=== PATIENT | male | born 1955 | race Caucasian/White ===

== ENCOUNTER 2018-06-03 15:11 | Inpatient (IN) | payer OTHER ==
[~2018-06-03] VITALS: Ht 180.3 cm; Wt 115.4 kg
[2018-06-03 15:15] VITALS: BP 177/99
[2018-06-03] MEDS ORDERED: ALEVE220 MG PO (15:30)
[2018-06-03] MEDS ORDERED: B12INJ IM (15:30)
[2018-06-03] MEDS ORDERED: GINKGO BILOBA30 MG PO (15:31)
[2018-06-03 15:33] LABS: ABSOLUTE EOSINOPHILS 0.1 thou/uL (0.0-0.7); ABSOLUTE LYMPHOCYTES 1.2 thou/uL (0.8-5.3); ABSOLUTE MONOCYTES 0.6 thou/uL (0.0-1.2); ABSOLUTE NEUTROPHILS 3.6 thou/uL (1.6-8.1); BASOPHILS 0.6 %; EOSINOPHILS 2.4 %; HEMATOCRIT 46.3 % (42.0-52.0); HEMOGLOBIN 15.7 gm/dL (14.0-18.0); LYMPHOCYTES 22.1 %; MCHC 33.9 g/dL (28.0-37.0); MCV 88.5 fL (80.0-100.0); MONOCYTES 10.4 %; MPV 8.4 fl. (7.2-11.1); NUCLEATED RBCS 0 /100WBC; PLATELET COUNT* 239 thou/uL (150-400); POLYS 64.5 %; RBC 5.23 mil/uL (4.50-6.00); RDW-CV 13.9 % (10.5-14.5); WBC 5.6 thou/uL (4.0-11.0)
[2018-06-03 15:40] LABS: CALCIUM 8.5 mg/dL (8.5-10.1); CREATININE 1.2 mg/dL (0.6-1.3)
[2018-06-03 15:41] LABS: APTT 28.7 Seconds (25.0-31.3)
[2018-06-03 16:01] LABS: ALBUMIN 4.1 g/dL (3.4-5.0); CK-MB MASS 3.8 ng/mL (<0.5-3.6); MAGNESIUM 2.1 mg/dL (1.8-2.4); TOTAL BILIRUBIN 0.6 mg/dL (<0.1-1.0); TOTAL PROTEIN 7.6 g/dL (6.4-8.2); TROPONIN-I LEVEL 0.2 ng/mL (<0.06)
[2018-06-03 16:56] VITALS: BP 182/100
[2018-06-03 20:00] VITALS: BP 128/78
[2018-06-04] VITALS (15 sets, daily range): BP systolic 115–144; BP diastolic 57–86
--- NOTE | 2018-06-04 10:27 | EKG ---
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
--- NOTE | 2018-06-04 10:27 | EKG ---
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
--- NOTE | 2018-06-04 12:09 | CARD ---
[address] [address] CARDIAC CATH REPORT Name: MARIANANIRAV Terence Room: [address] IN [facility]#: [id number] Admission: 06/03/18 Attend Phys: Gennaro Hunt, Discharge: Date of : 53 Report #: [id number] THIS REPORT FOR: //name// APPROVED REPORT Study performed: 06/04/2018 08:44:07 Patient Details Patient Status: In-Patient Room #: 221 The patient is a 62 year-old male Event Personnel Bassem Knapp Nutrition Worker, Christy Raya RN Tire Wrapper, Serene Lewis RTR Monitor, Mukund Loazia (R) Debbie Barrera Angela Monitor Procedures Performed Art Access - R radial artery Left Heart Cath w/or w/o Coronaries [id number] [facility] Hemostasis with Hemoband Indication Non-STEMI , Chest pain Risk Factors Family History, Hypercholesterolemia Admission/Lab Medications/Medications given during procedure Aspirin Procedure Narrative The patient was brought electively to the Cardiac Catheterization Laboratory and was prepped and draped in a sterile manner. The right wrist was infiltrated with 2% Lidocaine subcutaneous anesthesia. A Slender Glidesheath sheath was inserted into the right radial artery. Coronary angiography was performed using coronary diagnostic catheters. The right coronary system was accessed and visualized with a Diagnostic 6FR JR4 catheter. The left coronary system was accessed and visualized with a Diagnostic 6FR JL 3.5 catheter. The left ventricle was accessed and visualized with a Diagnostic 6FR ANGLED PIGTAIL catheter. Left ventricular/Aortic Valve gradient assessed via catheter pullback. Left ventriculogram was performed in ARELLANO projection. Closure device was deployed with a 6 Fr 27CM R-BAND 10CC. The patient tolerated the procedure well and there were no complications associated with the procedure. [place] [address] CARDIAC CATH REPORT Name: NIRAV PEÑA Room: [address] IN [facility]#: [id number] Admission: 06/03/18 Attend Phys: Gennaro Hunt, Discharge: Date of : 53 Report #: [id number] hematoma. Intraoperative Conscious Sedation Sedation start time: 9:24 Case end Time: 9:55 Fentanyl 25 mcg Versed 2 mg Fluoro Time: 7.3 minutes Dose: DAP 17279 cGycm2 1344 mGy Contrast Type and Amount: Visipaque 140 ml Coronary Angiography The patient's coronary anatomy is right dominant. Diagnostic Cath Left Main 30% distal stenosis LAD 70% proximal, 50% mid, and 60% distal stenosis Circumflex 60% ostial, and 70% after marginal branch OM3 70% proximal stenosis Right Coronary chronic occlusion and fills by collaterals from the left coronary Left Ventriculography The left ventricle is normal in size with normal contractility. The left ventricular ejection fraction is estimated to be 55-60%. Left ventricular wall motion abnormalities are not present. There is no mitral insufficiency. Hemodynamics The aortic pressure is 105/67 mmHg with a mean of 79 mmHg. The left ventricular pressure is 102/8 mmHg with a mean of mmHg. The left ventricular end diastolic pressure is 8 mmHg. There was no gradient across the aortic valve upon pullback. Pullback from the left ventricle to the aorta revealed no gradient across the aortic valve. Conclusion 1. 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 [place] [address] CARDIAC CATH REPORT Name: NIRAV PEÑA Room: [address] IN [facility].#: [id number] Admission: 06/03/18 Attend Phys: Gennaro Hunt, Discharge: Date of : 53 Report #: [id number] Recommendations CABG <ELECTRONICALLY SIGNED> By: Bassem Knapp MD, FACC 06/04/18 1208 07 1208Bassem Knapp MD, FACC /INF
[2018-06-05] VITALS: BP 141/86
[2018-06-05 04:00] VITALS: BP 143/90
[2018-06-05 05:34] LABS: CHOLESTEROL 198 mg/dL (<200); HDL CHOLESTEROL 35 mg/dL (>40); LDL CHOLESTEROL 132 mg/dL (<100); SERUM ASSESSMENT CLEAR; TC:HDL 5.7 Ratio (Not establshd); TRIGLYCERIDE 155 mg/dL (<150); VLDL 31 mg/dL (<40)
[2018-06-05 05:38] LABS: TROPONIN-I LEVEL 0.92 ng/mL (<0.06)
[2018-06-05 08:00] VITALS: BP 136/83
[2018-06-05] MEDS ORDERED: BAYER CHEWABLE81 MG PO (12:15)
[2018-06-05] MEDS ORDERED: LIPITOR 20 MG T20 M1 PO (12:16)
[2018-06-05] MEDS ORDERED: LOPRESSOR25 PO (12:16)
[2018-06-05] MEDS ORDERED: ATORVASTATIN CA40 MG PO (12:16)
[2018-06-05] MEDS ORDERED: ENOXAPARIN40 MG/0.1 SUBQ (12:17)
[2018-06-05 12:18] VITALS: BP 136/83
[2018-06-05] MEDS ORDERED: APAP650 PO (12:18)
--- NOTE | 2018-06-05 12:23 | 2DMMODE ---
[place] [address] 2 D/M-MODE ECHOCARDIOGRAM Name: NIRAV PEÑA Room: [address] IN [facility]#: [id number] Admission: 06/03/18 Attend Phys: Gennaro Perdomo Discharge: Date of : 53 Date of Service: 06/05/18 1223 Report #: [id number] THIS REPORT FOR: //name// APPROVED REPORT Study performed: 06/05/2018 09:44:40 EXAM: Comprehensive 2D, Doppler, and color-flow Echocardiogram Patient Location: In-Patient Room #: 221 Status: routine BSA: 2.39 HR: 59 bpm BP: 136/83 mmHg Rhythm: NSR Other Information Technically limited study due to body habitus, poor endocardial definition. Indications CAD Chest Pain Echo Enhancing Agent Indication: Endocardial border delineation Agent(s) / Amount(s) Used: Optison 3 cc 2D Dimensions LVEF(%): 52.68 (>50%) IVSd: 11.63 (7-11mm) LVOT Diam: 23.12 (18-24mm) LVDd: 40.31 mm PWd: 9.02 (7-11mm) Ascending Ao: 33.01 (22-36mm) LVDs: 29.55 (25-40mm) Aortic Root: 33.88 mm Blair's LVEF: 52.68 % Volumes Left Atrial Volume (Systole) LA ESV Index: 24.20 mL/m2 Aortic Valve AoV Peak Sukhjinder.: 1.60 m/s AO Peak Gr.: 10.18 mmHg LVOT Max P.28 mmHg AO Mean Gr.: 5.20 mmHg LVOT Mean P.62 [place] [address] 2 D/M-MODE ECHOCARDIOGRAM Name: NIRAV PEÑA Room: [address] IN ..#: [id number] Admission: 06/03/18 Attend Phys: Gennaro Perdomo Discharge: Date of : 53 Date of Service: 06/05/18 1223 Report #: [id number] LVOT Max V: 1.15 m/s AO V2 VTI: 31.68 cm LVOT Mean V: 0.74 m/s CRESENCIO (VTI): 3.10 cm2 LVOT V1 VTI: 23.43 cm Mitral Valve E/A Ratio: 0.71 MV Decel. Time: 225.84 ms MV E Max Sukhjinder.: 0.56 m/s MV PHT: 65.49 ms MVA (PHT): 3.36 cm2 TDI E/Lateral E': 5.09 E/Medial E': 7.00 Medial E' Suhkjinder.: 0.08 m/s Lateral E' Sukhjinder.: 0.11 m/s Pulmonary Valve PV Peak Sukhjinder.: 1.09 m/s PV Peak Gr.: 4.76 mmHg Left Ventricle The left ventricle is normal size. There is normal LV segmental wall motion. There is normal left ventricular wall thickness. Left ventricular systolic function is normal. The left ventricular ejection fraction is within the normal range. LVEF is 55-60%. Grade I - abnormal relaxation pattern. Right Ventricle The right ventricle is normal size. The right ventricular systolic function is normal. Atria The left atrium size is normal. The right atrium size is normal. Aortic Valve Mild aortic valve sclerosis. No aortic regurgitation is present. There is no aortic valvular stenosis. Mitral Valve The mitral valve is normal in structure. There is no mitral valve regurgitation noted. No evidence of mitral valve stenosis. Tricuspid Valve The tricuspid valve is normal in structure. Unable to assess PA pressure. Trace [place] [address] 2 D/M-MODE ECHOCARDIOGRAM Name: NIRAV PEÑA Room: [address] IN [facility]#: [id number] Admission: 06/03/18 Attend Phys: Gennaro Perdomo Discharge: Date of : 53 Date of Service: 06/05/18 1223 Report #: [id number] Pulmonic Valve The pulmonary valve is normal in structure. There is no pulmonic valvular regurgitation. Great Vessels The aortic root is normal in size. IVC is not well visualized. Pericardium There is no pericardial effusion. <Conclusion> The left ventricle is normal size. There is normal left ventricular wall thickness. LVEF is 55-60%. Grade I - abnormal relaxation pattern. The right ventricle is normal size. The left atrium size is normal. Mild aortic valve sclerosis. No aortic regurgitation is present. There is no aortic valvular stenosis. The mitral valve is normal in structure. There is no mitral valve regurgitation noted. The tricuspid valve is normal in structure. There is no pericardial effusion. There is normal LV segmental wall motion. <ELECTRONICALLY SIGNED> By: Alistair Irwin MD, FACC 06/05/18 1223 122 22 Alistair Irwin MD, FACC /INF
--- NOTE | 2018-06-05 15:05 | EKG ---
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1955 Requested By: Gennaro Hunt Order Number: [id number] Yojana MD: Alistair Irwin Measurements Intervals [place] Rate: 72 P: 59 [place]: 182 QRS: 52 QRSD: 114 T: -2 QT: 403 QTc: 442 Interpretive Statements Sinus rhythm possible inferior scar Artifact in lead(s) II,III,aVL,aVF Compared to ECG 06/03/2018 15:21:04 small inferior Q's persist Electronically Signed On 06-05-2018 15:05:28 CDT by Alistair Irwin [email or web address] <ELECTRONICALLY SIGNED> By: Alistair Irwin MD, [facility] 06/05/18 1505 1808 1808 Alistair Irwin MD, [facility] /EPI
--- NOTE | 2018-06-05 15:09 | EKG ---
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1955 Requested By: Bassem Knapp Order Number: [id number] Yojana MD: Alistair Irwin Measurements Intervals [place] Rate: 61 P: 10 MT: 196 QRS: 54 QRSD: 104 T: 2 QT: 414 QTc: 417 Interpretive Statements Sinus rhythm RSR' in V1 or V2, right VCD Borderline T abnormalities, inferior leads Compared to ECG 06/03/2018 15:21:04 RSR' in V1 or V2 now present T-wave abnormality now present Electronically Signed On 06-05-2018 15:08:58 CDT by Alistair Irwin [email or web address] <ELECTRONICALLY SIGNED> By: Alistair Irwin MD, [facility] 06/05/18 1508 0855 0855 Alistair Irwin MD, [facility] /EPI
[2018-06-05 15:21] VITALS: BP 149/87
[2018-06-05 20:00] VITALS: BP 166/84
[2018-06-06] VITALS: BP 138/77
[2018-06-06 02:06] LABS: GLYCOHEMOGLOBIN (HGB A1C) 5.6 % (4.8-5.6)
[2018-06-06 04:00] VITALS: BP 157/96
[2018-06-06 05:13] LABS: ABSOLUTE EOSINOPHILS 0.2 thou/uL (0.0-0.7); ABSOLUTE LYMPHOCYTES 1.2 thou/uL (0.8-5.3); ABSOLUTE MONOCYTES 0.6 thou/uL (0.0-1.2); ABSOLUTE NEUTROPHILS 3.2 thou/uL (1.6-8.1); BASOPHILS 0.5 %; EOSINOPHILS 3.1 %; HEMATOCRIT 44.5 % (42.0-52.0); LYMPHOCYTES 22.5 %; MCH 29.9 pg (26.0-34.0); MCHC 33.7 g/dL (28.0-37.0); MCV 88.9 fL (80.0-100.0); MONOCYTES 11.8 %; MPV 8.5 fl. (7.2-11.1); NUCLEATED RBCS 0 /100WBC; PLATELET COUNT* 200 thou/uL (150-400); POLYS 62.1 %; RBC 5.01 mil/uL (4.50-6.00); RDW-CV 13.5 % (10.5-14.5); WBC 5.1 thou/uL (4.0-11.0)
[2018-06-06 08:00] VITALS: BP 143/87
--- NOTE | 2018-06-06 21:13 | CON ---
[address] [address] CONSULTATION Name: NIRAV PEÑA Room: [address] IN M.R.#: [id number] Admission: 06/03/18 Attend Phys: Gennaro Hunt, Discharge: 06/06/18 Date of : 53 Report #: [id number] THIS REPORT FOR: //name// CC: Alistair Santoyo Gennaro Hunt DATE OF SERVICE: 06/04/2018 TYPE OF REPORT: Cardiology consultation. HISTORY OF THE PRESENT ILLNESS: The patient is a 62-year-old white male who I was asked to see in the hospital today after he complained of chest pain. The patient has no previous history of heart disease. He has never been here to [employer] [facility] before. He has had no previous cardiac evaluation. The patient does not exercise on a regular basis. He is also overweight, standing 5 feet 11 inches, weighing 260 pounds. He is from [facility] but was visiting his daughter yesterday here in [place]. He does have a history of back pain and sees a chiropractor. Recently, he has had some more back pain. He denied any previous trauma to his back. However, yesterday, he noticed some discomfort in his upper back and right side of his chest. He felt nausea and diaphoretic. He finally came to the Emergency Room yesterday and was admitted. He denied any history of chest pain, shortness of breath, palpitation, syncope or edema. He has had no bleeding. He has had no fever. No cough. PAST MEDICAL HISTORY: Significant for no surgical procedures. He has had arthroscopy of his knee. He has had elevated blood pressure, but no history of hypertension or diabetes. MEDICATIONS: His only medication include ibuprofen. ALLERGIES: He has no known drug allergies. FAMILY HISTORY: His father had coronary artery bypass surgery. Brother had coronary artery bypass surgery. SOCIAL HISTORY: He is retired from [employer], lives in [place] with his . No smoking. Rarely drinks alcohol. REVIEW OF SYSTEMS: He has had a history of stroke. He does have sleep apnea, uses CPAP. No history of asthma. He has had a hiatal hernia in the past. No history of liver disease, kidney disease, cancer, psychiatric illness or chronic skin condition. PHYSICAL EXAMINATION: GENERAL: Revealed a large middle-aged male, appeared in no distress. VITAL SIGNS: He had a blood pressure of 120/70, pulse 60 and [place] [address] CONSULTATION Name: NIRAV PEÑA Room: [address]#: [id number] Admission: 06/03/18 Attend Phys: Gennaro Hunt, Discharge: 06/06/18 Date of : 53 Report #: [id number] HEENT: He is anicteric. Conjunctivae pink. Mucous membranes are moist. NECK: Veins nondistended. No carotid bruits. Neck supple. CHEST: Clear to auscultation. CARDIOVASCULAR: Regular rate without murmur or rub. ABDOMEN: Soft and nontender. EXTREMITIES: Had no edema. SKIN: Warm and dry. NEUROLOGICAL: Nonfocal. LYMPHATIC: No adenopathy. MUSCULOSKELETAL: No joint effusion. RADIOLOGICAL DATA: ECG, sinus rhythm with PVCs in a pattern of bigeminy, nonspecific ST-segment changes. His workup, he had a portable chest x-ray that showed normal heart size, evidence for hiatal hernia. LABORATORY DATA: Creatinine 1.2 and glucose 148. Liver function studies were normal. Troponin was 0.2. White blood cell count 5.6 and hemoglobin 15.7. IMPRESSION AND RECOMMENDATIONS: 1. Unstable angina. Recommend cardiac catheterization. 2. Chronic back pain. 3. Hypertension. Recommend medications. 4. Sleep apnea. 5. History of hiatal hernia. <ELECTRONICALLY SIGNED> By: Bassem Knapp MD, FACC 06/06/18 2113 0814 2130Daarian Knapp MD, FACC /nt
[2018-06-13] MEDS ORDERED: LOPRESSOR50 PO (17:36)
[2018-06-13] MEDS ORDERED: ASA5UEC PO (17:37)
[2018-06-13] MEDS ORDERED: HYDROCODONE-AP1 EAC6 PO (17:37)
[2018-06-13] MEDS ORDERED: COLACE 100 MG100 MG PO (17:38)
[2018-06-13] MEDS ORDERED: LASIX 20 MG TAB20 MG PO (17:41)
[2018-06-13] MEDS ORDERED: PACERONE 200 M200 M1 PO (17:41)
== END 2018-06-06 11:00 | disposition short-term general hospital (02) | DRG 282 ==
LOC: M.ERS 15:11 → M.TBA-ER 16:14 → M.2W 16:14
PROVIDERS: Family Medicine; Internal Medicine Cardiovascular Disease; ADMIT Family Medicine
DX: I21.4 Non-ST elevation (NSTEMI) myocardial infarction (principal); I10 Essential (primary) hypertension; G89.29 Other chronic pain; M54.9 Dorsalgia, unspecified; G47.30 Sleep apnea, unspecified; I20.0 Unstable angina; E78.5 Hyperlipidemia, unspecified; E66.01 Morbid (severe) obesity due to excess calories; Z79.899 Other long term (current) drug therapy; Z82.49 Family history of ischemic heart disease and other diseases of the circulatory system; Z86.73 Personal history of transient ischemic attack (TIA), and cerebral infarction without residual deficits; Z99.81 Dependence on supplemental oxygen; Z68.35 Body mass index [BMI] 35.0-35.9, adult